=== PATIENT | male | born 1975 | race Caucasian/White ===

== ENCOUNTER 2022-09-17 12:41 | Day surgery (SDC) | payer BC, OTHER, MEDICAID, SELFPAY ==
--- NOTE | 2022-09-17 | PATH_ITS ---
[facility] Accession Number: [id number] No. of containers..02 Tissue . 01 Material submitted: . PART A: stomach - ANTRUM PART B: esophagus, E-G Junction - GEJ . 01 Diagnosis: A. Gastric Antrum, Biopsy: Gastric antral mucosa with no diagnostic abnormality. No evidence of Helicobacter organisms on H/E stain. Negative for intestinal metaplasia. Negative for dysplasia or malignancy. . B. Gastroesophageal Junction, Biopsy: Squamocolumnar junctional mucosa with specialized intestinal metaplasia; please see comment. Negative for dysplasia or malignancy. [facility] 09/20/2022 1153 Local . 01 Comment: B. 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 . 01 Electronically signed: . Michel Ryan MD, PhD, Pathologist NPI- [id number] . 01 Gross description: . Part A: ANTRUM: Received in formalin are 2 fragment(s) of rosario, soft tissue measuring 0.1 x 0.1 x 0.1 cm in aggregate submitted entirely in 1 cassette(s) Part B: GEJ: Received in formalin are 4 fragment(s) of rosario, soft tissue measuring 0.1 x 0.1 x 0.1 cm to 0.4 x 0.3 x 0.2 cm submitted entirely in 1 cassette(s) /[facility] 09/19/2022 0108 Local . 01 Pathologist provided ICD-10: K22.70 . 01 CPT . 054977, 075459 Specimen Comment: A courtesy copy of this report has been sent to [phone] Performed at: [facility] [address] [place] [address] [address], [place], [place] [id number] MD Vinod Callaway MD Phone: [phone]
[2022-09-17 13:16] VITALS: BP 134/83; PULSE 81; RESP 16; TEMP 36.1; O2SAT 98; BMI 33.0
[2022-09-17] MEDS: LACTATED RINGERS 1,000 ML 42 ML IV (13:26)
--- NOTE | 2022-09-17 13:45 | P.HP_ITS ---
History of Present Illness History of Present Illness Date Patient Seen: 09/17/22 Time Patient Seen: 13:46 Chief complaint: EGD Narrative: Chronic GERD. Here for Barretts screening. [facility] Social History household members: family Smoking Status: Current every day smoker alcohol intake: never Meds Home Medications and Allergies Home Medications Medication Instructions Recorded Confirmed Type omeprazole 20 mg tablet,delayed 20 mg PO DAILY 09/17/22 09/17/22 History release Allergies Allergy/AdvReac Type Severity Reaction Status Date / Time No Known Drug Allergies Allergy Verified 09/17/22 13:10 Review of Systems Review of Systems ROS: Yes All systems reviewed with the patient and are negative except as otherwise documented Exam Vital Signs (past 8 hours): - 09/17/22 13:16 Temperature 96.9 F L Pulse Rate 81 Respiratory Rate 16 Blood Pressure 134/83 Pulse Oximetry 98 Oxygen Delivery Method Room Air Oxygen Flow Rate 0 Oxygen Delivery Method Room Air Oxygen Flow Rate 0 Const General: cooperative HENMT Head: normal to inspection Eyes General: appearance normal, both eyes and all related structures Neck Neck: normal visual inspection Chest Chest: normal inspection of the chest Resp Effort & Inspection: normal respiratory effort Cardio Rate: regular rate GI Inspection: normal to inspection Skin General: no rashes or lesions noted Neuro General: patient alert and patient awake Extrem General: normal to inspection and no pedal edema Psych Appearance: grossly normal Assessment & Plan Assessment & Plan narrative: 47-year-old male with chronic GERD. Barretts screening is pursued today with EGD.
--- NOTE | 2022-09-17 13:46 | PM.PREOP ---
Pre-operative Note Interval Note History & Physical reviewed/Exam performed by Physician: Yes Changes to H&P: No ASA Class (for procedural sedation): II
--- NOTE | 2022-09-17 14:50 | PM.OP.EGD ---
Operative Date/Time/Diagnoses Date of procedure: 09/17/22 Time of procedure: 14:50 Pre-op diagnosis: Chronic GERD Post-op diagnosis: same Procedure & Clinicians Study performed: EGD with biopsies Same procedure as scheduled: Yes Indications: Chronic GERD screening for Barretts Surgeon: Albert Polo Procedure Notes SCOAP/Timeout: Done Procedure in detail: After the risks and benefits were explained, written and verbal informed consent was obtained. The patient was brought into the procedure room and placed into the left lateral decubitus position. Please see anesthesia notes for sedation details. The scope was introduced into the mouth through the bite block and advanced under direct visualization to the 2nd portion of the duodenum. The scope was slowly withdrawn carefully examining the mucosa for any defects or lesions. Retroflexed views were accomplished in the stomach. The stomach was decompressed, the scope was then removed from the patient who tolerated the procedure well. Sedation minutes: 12 Complications: none Impression: 1. Duodenum: This was visually normal from the bulb through to the 2nd portion. 2. Stomach: Patient had a mild gastropathy characterized by subtle erythema in the antrum. Biopsies at random were taken from the antrum for exclusion of H pylori or other pathology. Retroflexed views of the LES were unremarkable. 3. Esophagus: The squamocolumnar junction generally correlated with the top of the gastric folds. GEJ was at roughly 37 cm from the incisors. However, there was an irregular nodule in the 4:00. location. This nodule measured perhaps 4 x 7 mm. Multiple biopsies were acquired for histopathologic analysis. The remainder of the esophagus was unremarkable. Endoscopic diagnosis 1. Gastroesophageal junction nodule 2. Mild gastropathy Post-procedure Plan for aftercare: 1. Await histopathology. 2. Continue anti-reflux therapy. Disposition: PACU
[2022-09-17 14:55] VITALS: BP 134/85; PULSE 78; RESP 17; TEMP 36.3; O2SAT 96
[2022-09-17 15:00] VITALS: BP 131/90; PULSE 67; RESP 14; TEMP 36.3; O2SAT 97
[2022-09-17 15:02] VITALS: BP 135/85; PULSE 67; RESP 12; TEMP 36.4; O2SAT 97
[2022-09-17 15:10] VITALS: BP 131/87; PULSE 69; RESP 18; TEMP 36.4; O2SAT 98
[2022-09-17 15:21] VITALS: BP 134/88; PULSE 70; RESP 18; TEMP 36.4; O2SAT 99
== END 2022-09-17 15:22 | disposition home or self-care (01) ==
PROVIDERS: PCP Nurse Practitioner; Referring Provider Internal Medicine Gastroenterology; Visit Provider Internal Medicine Gastroenterology
PROC: 0DJ08ZZ Inspection of Upper Intestinal Tract, Via Natural or Artificial Opening Endoscopic (ICD-10-PCS; CPT 43235; principal; 2022-09-17 14:00)
DX: K21.9 Gastro-esophageal reflux disease without esophagitis (principal); K31.9 Disease of stomach and duodenum, unspecified; K22.70 Barrett's esophagus without dysplasia
CPT/HCPCS: 43239; J2704

== ENCOUNTER → 2022-11-16 18:21 | Outpatient (CLI) | payer BC, OTHER, MEDICAID, SELFPAY ==
--- NOTE | 2022-11-16 18:24 | DI.MRI.S_ITS ---
PROCEDURE: MR THORACIC SPINE WO CON INDICATIONS: Strain of lumbar region;Thoracic myofascial strain TECHNIQUE: Noncontrast sagittal T1 spine echo and T2 fast spin echo, sagittal STIR, and T2 fast spin echo through the thoracic spine. COMPARISON: Outside Film, CR, XR THORACIC SPINE 3 VIEWS, 09/24/2022, 17:14. FINDINGS: Image quality: Excellent. Alignment and Curvature: There is normal bony alignment. Bone Marrow: Marrow is of normal overall signal. No acute vertebral body compression fractures. Minimal multilevel spondylosis of the thoracic spine. Incidental note of a vertebral body hemangioma at C7. Spinal Cord: Visualized spinal cord is normal in size and signal. Paraspinous Soft Tissues: No paravertebral masses. Miscellaneous: On axial images, central canal and foramina appear widely patent at all scanned levels. IMPRESSION: Thoracic spine without acute osseous or soft tissue abnormalities. Minimal multilevel thoracic spondylosis without significant spinal or neuroforaminal stenosis. Dictated by: Danilo Schofield M.D. on 11/19/2022 at 8:08 Approved by: Danilo Schofield M.D. on 11/19/2022 at 8:15
--- NOTE | 2022-11-16 18:24 | DI.MRI.S_ITS ---
PROCEDURE: MR LUMBAR SPINE WO CON INDICATIONS: Strain of lumbar region;Thoracic myofascial strain TECHNIQUE: Noncontrast sagittal T1 spin echo and T2 fast echo, sagittal STIR, and T2 fast spin echo through the lumbar spine. In cases with scoliosis, additional coronal T2 fast spin echo may be performed. COMPARISON: Outside Film, CR, XR LUMBAR SPINE 2 OR 3 VIEWS, 09/24/2022, 17:14. FINDINGS: Image quality: Excellent. Alignment and Curvature: There is normal bony alignment. Bone Marrow: Marrow is of normal overall signal. No acute vertebral body compression fractures. Spinal Cord: Conus medullaris terminates at the L2 level. Visualized cord demonstrates normal signal and size. Paraspinous Soft Tissues: No paravertebral masses. T12-L1: Normal appearance. L1-L2: Normal appearance. L2-L3: Minimal bilateral facet arthropathy. No significant neuroforaminal or spinal canal stenosis. L3-L4: Minimal loss of disc T2 signal intensity. Small symmetric disc bulge. Bilateral facet arthropathy. Mild ligamentum flavum hypertrophy. Minimal bilateral neuroforaminal stenosis. No significant spinal canal stenosis. L4-L5: Small symmetric disc bulge. Moderate bilateral facet arthropathy. Ligamentum flavum hypertrophy. Mild epidural lipomatosis. Findings result in moderate bilateral neuroforaminal stenosis without significant spinal canal stenosis L5-S1: Small eccentric to the left disc bulge. Bilateral facet arthropathy. Findings result in minimal right and mild-moderate left bilateral neuroforaminal stenosis without significant spinal canal stenosis. IMPRESSION: Multilevel, multifactorial lumbar spondylosis as detailed above by vertebral body level. Findings are most pronounced at L4-5 and L5-S1 with L4-5 being the most severe. Dictated by: Danilo Schofield M.D. on 11/19/2022 at 18:07 Approved by: Danilo Schofield M.D. on 11/19/2022 at 18:14
== END ==
PROVIDERS: PCP Nurse Practitioner; Referring Provider Physician Assistant Surgical; Visit Provider Physician Assistant Surgical
DX: M47.817 Spondylosis without myelopathy or radiculopathy, lumbosacral region (principal); S29.019A Strain of muscle and tendon of unspecified wall of thorax, initial encounter; S39.012A Strain of muscle, fascia and tendon of lower back, initial encounter; M47.816 Spondylosis without myelopathy or radiculopathy, lumbar region; M25.561 Pain in right knee; M25.562 Pain in left knee
CPT/HCPCS: 72146; 72148

== ENCOUNTER 2022-12-31 11:54 | Day surgery (SDC) | payer BC, OTHER, MEDICAID, SELFPAY ==
--- NOTE | 2022-12-31 | PATH_ITS ---
[facility] Accession Number: [id number] No. of containers..01 Tissue . 01 Material submitted: . esophagus - DISTAL ESOPHAGUS BIOPSY . 01 Diagnosis: Distal Esophagus, Biopsy: Squamocolumnar junctional mucosa with specialized intestinal metaplasia; please see comment. Negative for dysplasia or malignancy. [facility] 01/04/2023 1450 Local . 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 . 01 Electronically signed: . Michel Ryan MD, PhD, Pathologist NPI- [id number] . 01 Gross description: . DISTAL ESOPHAGUS BIOPSY: Received in formalin is 1 fragment(s) of rosario, soft tissue measuring 0.3 x 0.2 x 0.1 cm submitted entirely in 1 cassette(s) /AAY 01/03/2023 0254 Local . 01 Pathologist provided ICD-10: K21.9, K22.70 . 01 CPT . 507774 Specimen Comment: A courtesy copy of this report has been sent to [phone] Performed at: 01 [facility] [address] [place] [address], [place], [place] [id number] MD Vinod Callaway MD Phone: [phone]
[2022-12-31] MEDS: LACTATED RINGERS 1,000 ML 100 ML IV (12:28)
--- NOTE | 2022-12-31 12:30 | PM.HP.1 ---
History of Present Illness History of Present Illness Date Patient Seen: 12/31/22 Time Patient Seen: 12:30 Chief complaint: [facility] [place] [facility] [place] Narrative: Chronic GERD, history of loose stools with gallbladder removal, abdominal pain, recent upper endoscopy showing a nodule that was returned suggestive of Barretts. [facility] Social History household members: family Smoking Status: Current every day smoker alcohol intake: never Meds Home Medications and Allergies Home Medications Medication Instructions Recorded Confirmed Type omeprazole 20 mg tablet,delayed 20 mg PO DAILY 09/17/22 09/17/22 History release Allergies Allergy/AdvReac Type Severity Reaction Status Date / Time No Known Drug Allergies Allergy Verified 12/31/22 12:30 Review of Systems Review of Systems ROS: Yes All systems reviewed with the patient and are negative except as otherwise documented Exam Const General: cooperative HENMT Head: normal to inspection Eyes General: appearance normal, both eyes and all related structures Neck Neck: normal visual inspection Chest Chest: normal inspection of the chest Resp Effort & Inspection: normal respiratory effort Cardio Rate: regular rate GI Inspection: normal to inspection Skin General: no rashes or lesions noted Neuro General: patient alert and patient awake Extrem General: normal to inspection and no pedal edema Psych Appearance: grossly normal Assessment & Plan Assessment & Plan narrative: 47-year-old male with a history of reflux and a recent upper endoscopy showing a nodule at the GE junction which was returned consistent with Barretts. Repeat EGD is pursued today.
--- NOTE | 2022-12-31 12:31 | PM.PREOP ---
Pre-operative Note Interval Note History & Physical reviewed/Exam performed by Physician: Yes Changes to H&P: No ASA Class (for procedural sedation): I
[2022-12-31 12:33] VITALS: BP 158/102; PULSE 74; RESP 16; TEMP 36.4; O2SAT 100; BMI 340.7
--- NOTE | 2022-12-31 13:21 | PM.OP.EGD ---
Operative Date/Time/Diagnoses Date of procedure: 12/31/22 Time of procedure: 13:21 Pre-op diagnosis: Barretts and an esophageal nodule. Chronic GERD. Post-op diagnosis: same Procedure & Clinicians Study performed: EGD with biopsies Same procedure as scheduled: Yes Indications: Barretts and an esophageal nodule. Chronic GERD. Surgeon: Albert Polo Procedure Notes SCOAP/Timeout: Done Procedure in detail: After the risks and benefits were explained, written and verbal informed consent was obtained. The patient was brought into the procedure room and placed into the left lateral decubitus position. Please see anesthesia notes for sedation details. The scope was introduced into the mouth through the bite block and advanced under direct visualization to the 2nd portion of the duodenum. The scope was slowly withdrawn carefully examining the mucosa for any defects or lesions. Retroflexed views were accomplished in the stomach. The stomach was decompressed, the scope was then removed from the patient who tolerated the procedure well. Sedation minutes: 6 Complications: none Impression: 1. Duodenal: This was visually unremarkable from the bulb through to the 2nd portion. 2. Stomach: Mild gastropathy was appreciated throughout. I did not repeat biopsies. Retroflexed views of the LES were unremarkable with the exception of a small sliding hiatal hernia. 3. Esophagus: The squamocolumnar junction correlated with the top of the gastric folds for the most part. GEJ was at about 38 cm from the incisors. There was a slight extension of the salmon-colored mucosa into the proximal esophagus. This appeared to be in the region that had historically shown the nodule. I elected to take a biopsy from this area. I reviewed the photos from the last endoscopy and did not see any residual nodule at the GE junction at this time. The remainder of the esophagus was unremarkable. Endoscopic diagnosis 1. C 0 M 0.25 Nelson's 2. No esophageal nodule evident 3. Small sliding hiatal hernia Post-procedure Plan for aftercare: 1. Await histopathology. 2. Continue anti-reflux therapy. 3. If Nelson's is confirmed, repeat EGD will be suggested for 3 years. Disposition: PACU
[2022-12-31 13:23] VITALS: BP 129/89; PULSE 79; RESP 16; O2SAT 99
[2022-12-31 13:29] VITALS: BP 142/92; PULSE 80; RESP 17; O2SAT 99
[2022-12-31 13:34] VITALS: BP 145/97; PULSE 77; RESP 19; O2SAT 98
[2022-12-31 13:43] VITALS: BP 130/82; PULSE 75; RESP 14; O2SAT 99
== END 2022-12-31 13:58 | disposition home or self-care (01) ==
PROVIDERS: PCP Nurse Practitioner; Referring Provider Internal Medicine Gastroenterology; Visit Provider Internal Medicine Gastroenterology
PROC: 0DJ08ZZ Inspection of Upper Intestinal Tract, Via Natural or Artificial Opening Endoscopic (ICD-10-PCS; CPT 43235; principal; 2022-12-31 13:30)
DX: K21.9 Gastro-esophageal reflux disease without esophagitis (principal); K22.70 Barrett's esophagus without dysplasia; K44.9 Diaphragmatic hernia without obstruction or gangrene
CPT/HCPCS: 43239; J2704